=== PATIENT | female | born 1960 | race Caucasian/White ===

== ENCOUNTER 2019-07-25 15:14 | Outpatient (CLI) | payer BC, SELFPAY ==
--- NOTE | 2019-07-25 15:22 | XR_ITS ---
WS: [id number] LEFT CLAVICLE 2 VIEWS HISTORY: SHOULDER PAIN, LEFT, CHRONIC ROTATOR CUFF SYNDROME. COMPARISON: None available. Clavicle is intact. No widening of the AC joint or elevation. Visualized upper lung field and adjacent soft tissues are normal. Focal calcification in the aortic arch. XR/[place] [id number] IMPRESSION: Normal LEFT clavicle.
--- NOTE | 2019-07-25 15:22 | XR_ITS ---
WS: [id number] LEFT SHOULDER: 3 VIEW(S) TECHNIQUE: Internal and external rotation with Y view. HISTORY: SHOULDER PAIN, LEFT, CHRONIC ROTATOR CUFF SYNDROME, LEFT COMPARISON: None available. No fracture or dislocation or soft tissue abnormality. Glenohumeral and AC joints are unremarkable. Atherosclerosis aorta. XR/XR shoulder LT min 2V* [id number] IMPRESSION: Normal LEFT shoulder.
== END 2019-07-25 15:15 | disposition home or self-care (01) ==
LOC: RADWPI 15:20
PROVIDERS: Family Provider Electrodiagnostic Medicine; PCP Electrodiagnostic Medicine; Referring Provider Electrodiagnostic Medicine; Visit Provider Electrodiagnostic Medicine
DX: M75.102 Unspecified rotator cuff tear or rupture of left shoulder, not specified as traumatic (principal); M25.512 Pain in left shoulder; G89.29 Other chronic pain
CPT/HCPCS: 73000; 73030

== ENCOUNTER 2019-12-14 08:24 | Outpatient (CLI) | payer BC, SELFPAY ==
[2019-12-14 09:13] LABS: Alanine Aminotransferase 7 U/L (0-33); Albumin Level 4.4 g/dL (3.5-5.2); Alkaline Phosphatase 99 IU/L (35-105); Anion Gap 14.5 (5-19); Aspartate Amino Transferase 25 U/L (0-32); Blood Urea Nitrogen 10 mg/dL (6-20); Calcium 9.8 mg/dL (8.5-10.5); Carbon Dioxide 28 mmol/L (22-29); Chloride 101 mmol/L (98-107); Globulin 2.6 g/dL (1.3-4.6); Glomerular Filtration Rate 86.2 mL/min (90-130); Glucose 108 mg/dL (65-115); Osmolality Calculated 285 mOsm/kg (285-295); Potassium 4.5 mmol/L (3.5-5.1); Sodium 139 mmol/L (136-145); Total Bilirubin 0.2 mg/dL (0.15-1.2)
== END 2019-12-14 08:25 | disposition home or self-care (01) ==
LOC: ONCMED 08:26
PROVIDERS: PCP Electrodiagnostic Medicine; Visit Provider Internal Medicine Hematology & Oncology
DX: C50.411 Malignant neoplasm of upper-outer quadrant of right female breast (principal); Z17.0 Estrogen receptor positive status [ER+]
CPT/HCPCS: 80053

== ENCOUNTER 2019-12-15 05:56 | Outpatient (CLI) | payer BC, SELFPAY ==
--- NOTE | 2019-12-15 09:34 | ONC FU_ITS ---
Dr. Lynne follow up note Patient: Kellie Cruz Unit #: [id number]: 1960 Dicatated By: Kyung Lynne M.D.Date of Visit:Dec 15, 2019 Onc Med Follow-up/Prog Note History of Present Illness: Mrs. Kellie Cruz, is a 58-year-old female with newly diagnosed right breast cancer, as per patient she noticed a mass in her right breast for which she underwent mammogram and right breast ultrasound which confirmed 2 cm mass at 11:00 position which was biopsied and showed invasive ductal carcinoma ER/CO positive HER-2/idalmis negative, underwent right lumpectomy with sentinel lymph node sampling on 01/05/2019, final pathology report showed invasive ductal carcinoma tumor size 1.5 cm, perineural invasion identified, no lymphovascular invasion, clear surgical margins T1c and 5 sentinel lymph nodes were removed showed no evidence of metastatic disease. N0 Stage IA, ER 93% positive, CO 57 positive HER-2/idalmis negative, Ki-67 10% Oncotype DX score checked on 02/02/2019 showed recurrence score 13 e.g. low, distant recurrence risk at 9 years with aromatase inhibitor is 4% and absolute chemotherapy benefit is less than 1%. Started on Arimidex 1 mg by mouth daily for 5 years on 02/09/2019 Patient also underwent [employer] cancer next panel and she was negative for any known pathogenic mutation Evaluated via telephone, patient denies any special complaints except persistent but improving generalized musculoskeletal discomfort/pain. Earlier she was advised to take Arimidex in the evening to see it is better tolerated, patient continued to take in the morning and thought she can tough it out. No fever or chills, no nausea or vomiting, no diarrhea or constipation, no skin rash or jaundice, no new bony pains otherwise, occasional hot flashes. Medications: busPIRone HCl 1 (5 mg) Tablet Oral daily, Citalopram Hydrobromide 1 (20 mg) Tablet Oral daily, Cyanocobalamin (2500 mcg) Tablet Oral daily, Loratadine 1 (10 mg) Tablet Oral daily PRN, Omeprazole 1 (40 mg) Capsule Delayed Release Oral daily Allergies: No Known Allergies. Review of Systems: Review of Systems is not available for this patient. Vital Signs: Vitals are not available for this patient. Performance Status: 0 - Fully active, able to carry on all predisease activities without restrictions. (ECOG) Physical Examination: Respiratory - denies shortness of breath, Cardiovascular - denies palpitations, Breasts - denies breast mass or tenderness, Gastrointestinal - denies abd pain or fullness, Extremities - denies edema or rash. Lab/Imaging: Test performed on Dec 14, 2019 08:45 Sodium 139 mmol/L Potassium 4.5 mmol/L Chloride 101 mmol/L CO2 28 mmol/L Anion Gap 14.5 BUN 10 mg/dL Creatinine 0.7 mg/dL Cr Clearance (Est) 91.6900 mL/min eGFR 86.2 mL/min Glucose 108 mg/dL Calcium 9.8 mg/dL Protein, Total 7.0 g/dL Albumin 4.4 g/dL Globulin 2.6 g/dL Bilirubin, Total 0.2 mg/dL ALT (SGPT) 7 U/L AST (SGOT) 25 U/L Alkaline Phosphatase 99 IU/L Impression: Invasive ductal carcinoma of right breast status post right lumpectomy with right sentinel axillary lymph node sampling done on 01/05/2019 Final pathology report showed 1.5 cm invasive tumor with perineural invasion identified but no lymphovascular invasion seen with clear surgical margins pT1c, 5 right sentinel axillary lymph nodes were sampled, showed no evidence of metastatic disease ,pN0 Stage IA , ER 93%, CO 57% Ki-67 10% HER-2/idalmis negative Oncotype DX score is 13, which is low and distant recurrence risk at 9 years with aromatase inhibitor is 4% and absolute chemotherapy benefit is less than 1% so started on Arimidex 1 mg by mouth daily for 5 years on 02/09/2019 Plan: Discussed with patient on the telephone regarding her labs comprehensive metabolic panel which is within normal range including alkaline phosphatase Clinically, patient is doing well, tolerating adjuvant hormonal therapy with Arimidex/vitamin D/calcium well but with expected side effects e.g. occasional hot flashes, musculoskeletal pain/discomfort. Patient said her musculoskeletal symptoms now improving but still there. She was advised to try Arimidex in the evening, it may improve her symptoms, if not other agents like Femara or Aromasin can be considered. Patient says she will try it in the evening and if there is no improvement or worsening of her musculoskeletal symptoms then she will call us to make her appointment otherwise we will see her back in 6 months with CBC CMP. Patient has seen her surgical oncologist at [facility] on November 15, 2019, as per surgical note, patient has small cyst in her left breast, appears benign but follow-up studies in 6 months planned. Patient will continue to follow with her surgical oncology. Signed By: Kyung Lynne M.D. <<Signature on File>>
== END 2019-12-15 05:57 | disposition home or self-care (01) ==
LOC: ONCMED 05:58
PROVIDERS: PCP Electrodiagnostic Medicine; Visit Provider Internal Medicine Hematology & Oncology
DX: C50.411 Malignant neoplasm of upper-outer quadrant of right female breast (principal); Z17.0 Estrogen receptor positive status [ER+]; N60.02 Solitary cyst of left breast; Z79.811 Long term (current) use of aromatase inhibitors

== ENCOUNTER 2020-06-26 07:58 | Outpatient (CLI) | payer BC, SELFPAY ==
[2020-06-26 08:42] LABS: Basophils % 0.6 %; Eosinophils # 0.1 10^3/uL (0.0-0.8); Hematocrit 42.8 % (37.0-47.0); Lymphocytes # 1.5 10^3/uL (0.8-4.8); Lymphocytes % 20.8 %; Mean Corpuscular HGB Conc 32.7 g/dL (30.0-36.0); Mean Corpuscular Hemoglobin 33.3 pg (28.0-34.0); Mean Corpuscular Volume 101.7 fL (81-99); Mean Platelet Volume 9.4 fL (7.4-10.4); Monocytes # 0.3 10^3/uL (0.2-0.9); Monocytes % 4.5 %; Neutrophils # 5.22 10^3/uL (1.8-7.7); Neutrophils % 72.8 %; Nucleated Red Blood Cells % 0 %; Platelet Count 304 10^3/cmm (130-400); Red Blood Count 4.21 10^6/uL (4.1-5.3); Red Cell Distribution Width 13.4 % (12.1-15.1); White Blood Count 7.2 10^3/uL (4.0-10.0)
[2020-06-26 09:25] LABS: Alanine Aminotransferase 11 U/L (0-33); Albumin Level 4.5 g/dL (3.5-5.2); Alkaline Phosphatase 117 IU/L (35-105); Anion Gap 15.4 (5-19); Aspartate Amino Transferase 16 U/L (0-32); Blood Urea Nitrogen 11 mg/dL (6-20); Calcium 9.9 mg/dL (8.5-10.5); Carbon Dioxide 28 mmol/L (22-29); Chloride 100 mmol/L (98-107); Globulin 2.8 g/dL (1.3-4.6); Glomerular Filtration Rate 86.2 mL/min (90-130); Glucose 81 mg/dL (65-115); Osmolality Calculated 286 mOsm/kg (285-295); Potassium 4.4 mmol/L (3.5-5.1); Sodium 139 mmol/L (136-145); Total Bilirubin 0.2 mg/dL (0.15-1.2); Total Protein 7.3 g/dL (6.6-8.7)
--- NOTE | 2020-06-26 16:58 | ONC FU_ITS ---
Dr. Lynne follow up note Patient: Kellie Cruz Unit #: [id number]: 1960 Dicatated By: Kyung Lynne M.D.Date of Visit:Jun 26, 2020 Onc Med Follow-up/Prog Note History of Present Illness: Mrs. Kellie Cruz, is a 59-year-old female with newly diagnosed right breast cancer, as per patient she noticed a mass in her right breast for which she underwent mammogram and right breast ultrasound which confirmed 2 cm mass at 11:00 position which was biopsied and showed invasive ductal carcinoma ER/MA positive HER-2/idalmis negative, underwent right Partial mastectomy/sentinel lymph node biopsy on 01/05/2019, final pathology report showed invasive ductal carcinoma tumor size 1.5 cm, perineural invasion identified, no lymphovascular invasion, clear surgical margins T1c and 5 sentinel lymph nodes were removed showed no evidence of metastatic disease. N0 Stage IA, ER 93% positive, MA 57 positive HER-2/idalmis negative, Ki-67 10% Oncotype DX score checked on 02/02/2019 showed recurrence score 13 e.g. low, distant recurrence risk at 9 years with aromatase inhibitor is 4% and absolute chemotherapy benefit is less than 1%. Started on Arimidex 1 mg by mouth daily for 5 years on 02/09/2019 She was given postlumpectomy radiation therapy which she completed On April 05, 2019 Patient also underwent [employer]'s cancer next panel and she was negative for any known pathogenic mutation Came for follow-up, denies any specific complaints, no fever chills, no nausea or vomiting, no diarrhea constipation off and on right hip pain but under control. Patient states she has seen her surgeon on June 01, 2020 and was told there is no evidence of recurrence of disease and follow-up mammogram was scheduled in 6 months., Occasionally hot flashes otherwise tolerating Arimidex well, denies any worsening of musculoskeletal pain/discomfort. As per patient in the last week of April she started feeling weak and tired and headaches and was diagnosed with COVID-19, with supportive care, her symptoms resolved over the period of 2 weeks and now denies any symptoms her sense of smell or taste is intact, no more generalized weakness or fatigue no shortness of breath. Medications: busPIRone HCl 1 (5 mg) Tablet Oral daily, Citalopram Hydrobromide 1 (20 mg) Tablet Oral daily, Loratadine 1 (10 mg) Tablet Oral daily PRN, Omeprazole 1 (40 mg) Capsule Delayed Release Oral daily Allergies: No Known Allergies. Review of Systems: Constitutional - Appetite is good and weight is stable. No fever. Positive for chills, hot flashes, and night sweats. Energy level is good, ENMT - No for sinus congestion/drainage. No mouth sores. No sore throat or difficulty swallowing, Hematologic/Lymphatic - No abnormal bruising or bleeding, Respiratory - Occ shortness of breath. No cough. No pleuritic pain or hemoptysis, Cardiovascular - No angina pain. No palpitations, Gastrointestinal - No nausea or vomiting. Positive for heartburn and acid reflux, but takes medication for this. No diarrhea. No constipation. No blood in the stool or black stools, Genitourinary (F) - No dysuria or hematuria. No urinary frequency. No urgency. No incontinence, Musculoskeletal - No joint or bone pain, Neurologic - No headache or dizziness. No numbness/paresthesias or other focal neurologic symptoms, Psychiatric - Positive for anxiety and depression, but is taking medication for this. No reports of recent insomnia. Vital Signs: Performed on Jun 26, 2020 10:44 Height - 62.00 in Weight - 138.0 lbs (LOW) BSA - 1.63 sq.m BMI - 25.24 Temperature - 97.3 F (LOW) Pulse - 63 /min Respiration - 18 /min BP - 139/84 mm(hg) O2 Sat - 100 % Pain - 0 Performance Status: 0 - Fully active, able to carry on all predisease activities without restrictions. (ECOG) Physical Examination: Respiratory - Lungs are clear to auscultation, Cardiovascular - Regular rate and rhythm of heart , Gastrointestinal - Soft, bowel sounds present, Extremities - No visible edema or rash or cyanosis. Lab/Imaging: Most recent lab results are not available for this patient. Impression: Invasive ductal carcinoma of right breast status post right lumpectomy with right sentinel axillary lymph node sampling done on 01/05/2019 Final pathology report showed 1.5 cm invasive tumor with perineural invasion identified but no lymphovascular invasion seen with clear surgical margins pT1c, 5 right sentinel axillary lymph nodes were sampled, showed no evidence of metastatic disease ,pN0 Stage IA , ER 93%, MA 57% Ki-67 10% HER-2/idalmis negative Oncotype DX score is 13, which is low and distant recurrence risk at 9 years with aromatase inhibitor is 4% and absolute chemotherapy benefit is less than 1% so started on Arimidex 1 mg by mouth daily for 5 years on 02/09/2019 Status post post partial mastectomy radiation therapy completed on April 05, 2019 Status post COVID-19 infection diagnosed in late April 2020, resolved with supportive care Plan: Discussed with patient regarding her labs white blood count 7.2 hemoglobin 14 hematocrit 42.8 platelets 304,000 CMP within normal limits Clinically, patient doing well with no new signs suggestive of recurrence of disease, tolerating Arimidex well along with vitamin D and calcium supplement. As per patient she has seen surgical services recently in May 2020 in [facility] and is she was told there is no evidence of recurrence of disease and follow-up mammogram is scheduled in 6 months. She return to clinic in 6 months with CMP Signed By: Kyung Lynne M.D. <<Signature on File>>
== END 2020-06-26 07:59 | disposition home or self-care (01) ==
LOC: ONCMED 07:59
PROVIDERS: PCP Electrodiagnostic Medicine; Visit Provider Internal Medicine Hematology & Oncology
DX: C50.411 Malignant neoplasm of upper-outer quadrant of right female breast (principal); Z17.0 Estrogen receptor positive status [ER+]; E55.9 Vitamin D deficiency, unspecified; E83.51 Hypocalcemia; Z79.818 Long term (current) use of other agents affecting estrogen receptors and estrogen levels; Z86.19 Personal history of other infectious and parasitic diseases
CPT/HCPCS: 36415; 80053; 85025; G0463

== ENCOUNTER 2020-12-14 08:48 | Outpatient (CLI) | payer BC, SELFPAY ==
[2020-12-14 09:54] LABS: Alanine Aminotransferase 12 U/L (0-33); Albumin Level 4.3 g/dL (3.5-5.2); Alkaline Phosphatase 99 IU/L (35-105); Anion Gap 11.6 (5-19); Aspartate Amino Transferase 19 U/L (0-32); Blood Urea Nitrogen 12 mg/dL (6-20); Calcium 8.9 mg/dL (8.5-10.5); Carbon Dioxide 30 mmol/L (22-29); Chloride 101 mmol/L (98-107); Globulin 2.8 g/dL (1.3-4.6); Glomerular Filtration Rate 102.7 mL/min (90-130); Glucose 95 mg/dL (65-115); Osmolality Calculated 286 mOsm/kg (285-295); Potassium 4.6 mmol/L (3.5-5.1); Sodium 138 mmol/L (136-145); Total Bilirubin 0.2 mg/dL (0.15-1.2); Total Protein 7.1 g/dL (6.6-8.7)
--- NOTE | 2020-12-14 11:18 | ONC FU_ITS ---
Dr. Lynne follow up note Patient: Kellie Cruz Unit #: [id number]: 1960 Dicatated By: Kyung Lynne M.D.Date of Visit:Dec 14, 2020 Onc Med Follow-up/Prog Note History of Present Illness: Mrs. Kellie Cruz, is a 59-year-old female with newly diagnosed right breast cancer, as per patient she noticed a mass in her right breast for which she underwent mammogram and right breast ultrasound which confirmed 2 cm mass at 11:00 position which was biopsied and showed invasive ductal carcinoma ER/NE positive HER-2/idalmis negative, underwent right Partial mastectomy/sentinel lymph node biopsy on 01/05/2019, final pathology report showed invasive ductal carcinoma tumor size 1.5 cm, perineural invasion identified, no lymphovascular invasion, clear surgical margins T1c and 5 sentinel lymph nodes were removed showed no evidence of metastatic disease. N0 Stage IA, ER 93% positive, NE 57 positive HER-2/idalmis negative, Ki-67 10% Oncotype DX score checked on 02/02/2019 showed recurrence score 13 e.g. low, distant recurrence risk at 9 years with aromatase inhibitor is 4% and absolute chemotherapy benefit is less than 1%. Started on Arimidex 1 mg by mouth daily for 5 years on 02/09/2019 She was given postlumpectomy radiation therapy which she completed On April 05, 2019 Patient also underwent [employer]'s cancer next panel and she was negative for any known pathogenic mutation Patient states she has seen her surgeon on June 01, 2020 and was told there is no evidence of recurrence of disease and follow-up mammogram was scheduled in 6 months., Occasionally hot flashes otherwise tolerating Arimidex well, As per patient in the last week of April she started feeling weak and tired and headaches and was diagnosed with COVID-19, with supportive care, her symptoms resolved over the period of 2 weeks Bilateral mammogram and right diagnostic mammogram/ultrasound done on November 30, 2020 at [facility], shows BI-RADS 2, benign finding I recommended continue yearly mammogram. Came for follow-up, denies any specific complaints, no fever chills, no nausea or vomiting, no diarrhea or constipation, no new bony pains, no weight loss, appetite is good, patient has seen her surgeon in [facility] recently and underwent mammogram and she was told it was unremarkable and advised to continue with Arimidex for total 5 years and continue with follow-up mammogram every year Medications: busPIRone HCl 1 (5 mg) Tablet Oral daily, Citalopram Hydrobromide 1 (20 mg) Tablet Oral daily, Loratadine 1 (10 mg) Tablet Oral daily PRN, Omeprazole 1 (40 mg) Capsule Delayed Release Oral daily Allergies: No Known Allergies. Review of Systems: Review of Systems is not available for this patient. Vital Signs: Performed on Dec 14, 2020 10:37 Height - 62.00 in Weight - 143.6 lbs (HIGH) BSA - 1.66 sq.m BMI - 26.26 Temperature - 97.1 F (LOW) Pulse - 72 /min Respiration - 18 /min BP - 156/89 mm(hg) (HIGH) O2 Sat - 97 % Pain - 0 Performance Status: 0 - Fully active, able to carry on all predisease activities without restrictions. (ECOG) Physical Examination: Respiratory - Lungs are clear to auscultation, Cardiovascular - Regular rate and rhythm of heart, Gastrointestinal - Soft, bowel sounds present, Extremities - No visible edema or rash. Lab/Imaging: Test performed on Jun 26, 2020 08:20 Sodium 139 mmol/L Potassium 4.4 mmol/L Chloride 100 mmol/L CO2 28 mmol/L Anion Gap 15.4 BUN 11 mg/dL Creatinine 0.7 mg/dL Cr Clearance (Est) 87.62 mL/min eGFR 86.2 mL/min Glucose 81 mg/dL Osmolality - Calculated 286 mOsm/kg Calcium 9.9 mg/dL Protein, Total 7.3 g/dL Albumin 4.5 g/dL Globulin 2.8 g/dL Bilirubin, Total 0.2 mg/dL ALT (SGPT) 11 U/L AST (SGOT) 16 U/L Alkaline Phosphatase 117 IU/L WBC 7.2 10 3/uL RBC 4.21 10 6/uL HGB 14.0 g/dL HCT 42.8 % MCV 101.7 fL MCH 33.3 pg MCHC 32.7 g/dL RDW 13.4 % Platelet Count 304 10 3/cmm MPV 9.4 fL Neutrophils 5.22 10 3/uL Lymphocytes 1.5 10 3/uL Monocytes 0.3 10 3/uL Eosinophils 0.1 10 3/uL Basophils 0.0 10 3/uL Neutrophil % 72.8 % Lymphocyte % 20.8 % Monocyte % 4.5 % Eosinophil % 1.0 % Basophils % 0.6 % NRBC % 0 % Impression: Invasive ductal carcinoma of right breast status post right lumpectomy with right sentinel axillary lymph node sampling done on 01/05/2019 Final pathology report showed 1.5 cm invasive tumor with perineural invasion identified but no lymphovascular invasion seen with clear surgical margins pT1c, 5 right sentinel axillary lymph nodes were sampled, showed no evidence of metastatic disease ,pN0 Stage IA , ER 93%, NE 57% Ki-67 10% HER-2/idalmis negative Oncotype DX score is 13, which is low and distant recurrence risk at 9 years with aromatase inhibitor is 4% and absolute chemotherapy benefit is less than 1% so started on Arimidex 1 mg by mouth daily for 5 years on 02/09/2019 Status post post partial mastectomy radiation therapy completed on April 05, 2019 Status post COVID-19 infection diagnosed in late April 2020, resolved with supportive care Plan: Discussed with patient regarding her labs CMP within normal range, clinically, there is no signs symptom suggestive of recurrence of disease, recently evaluated by surgery at [facility] and her follow-up mammogram showed no abnormality. Patient is tolerating Arimidex well along with vitamin D and calcium, will continue with same., As mentioned in surgery note dated November 30, 2020, that she has not gotten the Covid vaccine as it was not recommended by her medical oncologist which is not true and in fact, patient was encouraged to consider Covid vaccination but patient was reluctant due to her own belief system and moreover patient said she did not make such statement. But regardless, patient was again advised to consider Covid vaccination, patient states she will discuss with her PMD and then decide In the meantime continue with Arimidex 1 mg daily along with vitamin D and calcium supplements and return to clinic in 6 months with CBC CMP Signed By: Kyung Lynne M.D. <<Signature on File>>
== END 2020-12-14 08:49 | disposition home or self-care (01) ==
LOC: ONCMED 08:51
PROVIDERS: PCP Electrodiagnostic Medicine; Visit Provider Internal Medicine Hematology & Oncology
DX: C50.811 Malignant neoplasm of overlapping sites of right female breast (principal); C77.3 Secondary and unspecified malignant neoplasm of axilla and upper limb lymph nodes; Z79.811 Long term (current) use of aromatase inhibitors; Z90.11 Acquired absence of right breast and nipple; Z92.3 Personal history of irradiation; Z17.0 Estrogen receptor positive status [ER+]
CPT/HCPCS: 36415; 80053; 99214

== ENCOUNTER 2021-06-17 10:56 | Outpatient (CLI) | payer BC, SELFPAY ==
[2021-06-17 11:55] LABS: Alanine Aminotransferase 19 U/L (0-33); Albumin Level 4.3 g/dL (3.5-5.2); Alkaline Phosphatase 111 IU/L (35-105); Anion Gap 17.5 (5-19); Aspartate Amino Transferase 20 U/L (0-32); Blood Urea Nitrogen 5 mg/dL (6-20); Carbon Dioxide 24 mmol/L (22-29); Chloride 102 mmol/L (98-107); Globulin 2.4 g/dL (1.3-4.6); Glomerular Filtration Rate 102.7 mL/min (90-130); Glucose 83 mg/dL (65-115); Osmolality Calculated 284 mOsm/kg (285-295); Potassium 4.5 mmol/L (3.5-5.1); Sodium 139 mmol/L (136-145); Total Bilirubin 0.2 mg/dL (0.15-1.2); Total Protein 6.7 g/dL (6.6-8.7)
[2021-06-17 12:33] LABS: Basophils % 0.6 %; Eosinophils # 0.1 10^3/uL (0.0-0.8); Hematocrit 39.5 % (37.0-47.0); Hemoglobin 13.4 g/dL (11.5-15.3); Lymphocytes % 32.3 %; Mean Corpuscular HGB Conc 33.9 g/dL (30.0-36.0); Mean Corpuscular Hemoglobin 33.5 pg (28.0-34.0); Mean Corpuscular Volume 98.8 fl (81-99); Mean Platelet Volume 9.6 fL (7.4-10.4); Monocytes # 0.3 10^3/uL (0.2-0.9); Monocytes % 4.8 %; Neutrophils # 3.85 10^3/uL (1.8-7.7); Nucleated Red Blood Cells % 0 %; Platelet Count 295 10^3/cmm (130-400); Red Cell Distribution Width 13.2 % (12.1-15.1); White Blood Count 6.3 10^3/uL (4.0-10.0)
--- NOTE | 2021-06-17 17:04 | ONC FU_ITS ---
Dr. Lynne follow up note Patient: Kellie Cruz Unit #: [id number]: 1960 Dicatated By: Kyung Lynne M.D.Date of Visit:Jun 17, 2021 Onc Med Follow-up/Prog Note History of Present Illness: Mrs. Kellie Cruz, is a 60-year-old female with newly diagnosed right breast cancer, as per patient she noticed a mass in her right breast for which she underwent mammogram and right breast ultrasound which confirmed 2 cm mass at 11:00 position which was biopsied and showed invasive ductal carcinoma ER/VA positive HER-2/idalmis negative, underwent right Partial mastectomy/sentinel lymph node biopsy on 01/05/2019, final pathology report showed invasive ductal carcinoma tumor size 1.5 cm, perineural invasion identified, no lymphovascular invasion, clear surgical margins T1c and 5 sentinel lymph nodes were removed showed no evidence of metastatic disease. N0 Stage IA, ER 93% positive, VA 57 positive HER-2/idalmis negative, Ki-67 10% Oncotype DX score checked on 02/02/2019 showed recurrence score 13 e.g. low, distant recurrence risk at 9 years with aromatase inhibitor is 4% and absolute chemotherapy benefit is less than 1%. Started on Arimidex 1 mg by mouth daily for 5 years on 02/09/2019 She was given postlumpectomy radiation therapy which she completed On April 05, 2019 Patient also underwent [employer]'s cancer next panel and she was negative for any known pathogenic mutation Patient states she has seen her surgeon on June 01, 2020 and was told there is no evidence of recurrence of disease and follow-up mammogram was scheduled in 6 months., Occasionally hot flashes otherwise tolerating Arimidex well, As per patient in the last week of April she started feeling weak and tired and headaches and was diagnosed with COVID-19, with supportive care, her symptoms resolved over the period of 2 weeks Bilateral mammogram and right diagnostic mammogram/ultrasound done on November 30, 2020 at [facility], shows BI-RADS 2, benign finding I recommended continue yearly mammogram. Came for follow-up, denies any specific complaints, no fever chills, no nausea or vomiting, no diarrhea constipation, no new bony pains, occasionally hot flashes otherwise tolerating Arimidex well Medications: busPIRone HCl 1 (5 mg) Tablet Oral daily, Citalopram Hydrobromide 1 (20 mg) Tablet Oral daily, Loratadine 1 (10 mg) Tablet Oral daily PRN, Omeprazole 1 (40 mg) Capsule Delayed Release Oral daily Allergies: No Known Allergies. Review of Systems: Review of Systems is not available for this patient. Vital Signs: Performed on Jun 17, 2021 13:34 Height - 62.00 in Weight - 150.2 lbs (HIGH) BSA - 1.69 sq.m BMI - 27.47 Temperature - 97.9 F (LOW) Pulse - 86 /min Respiration - 16 /min BP - 147/84 mm(hg) (HIGH) O2 Sat - 98 % Pain - 0 Fatigue - 8 Performance Status: 0 - Fully active, able to carry on all predisease activities without restrictions. (ECOG) Physical Examination: Respiratory - Lungs are clear to auscultation, Cardiovascular - Regular rate and rhythm of heart, Gastrointestinal - Soft, bowel sounds present, Extremities - No visible edema. Lab/Imaging: Most recent lab results are not available for this patient. Impression: Invasive ductal carcinoma of right breast status post right lumpectomy with right sentinel axillary lymph node sampling done on 01/05/2019 Final pathology report showed 1.5 cm invasive tumor with perineural invasion identified but no lymphovascular invasion seen with clear surgical margins pT1c, 5 right sentinel axillary lymph nodes were sampled, showed no evidence of metastatic disease ,pN0 Stage IA , ER 93%, VA 57% Ki-67 10% HER-2/idalmis negative Oncotype DX score is 13, which is low and distant recurrence risk at 9 years with aromatase inhibitor is 4% and absolute chemotherapy benefit is less than 1% so started on Arimidex 1 mg by mouth daily for 5 years on 02/09/2019 Status post post partial mastectomy radiation therapy completed on April 05, 2019 Status post COVID-19 infection diagnosed in late April 2020, resolved with supportive care Plan: Discussed with patient regarding her labs white blood count 6.3 hemoglobin 13.4 hematocrit 39.5 platelets 295,000 CMP within normal limits Clinically, patient doing well with no new signs symptoms history of recurrence of disease, tolerating daily Arimidex well, will continue same we will also add vitamin D and calcium supplements.. And then she will return to clinic 6 months with CBC CMP and follow-up mammogram which will be scheduled at initial [facility] Signed By: Kyung Lynne M.D. <<Signature on File>>
== END 2021-06-17 10:57 | disposition home or self-care (01) ==
LOC: ONCMED 10:58
PROVIDERS: PCP Electrodiagnostic Medicine; Visit Provider Internal Medicine Hematology & Oncology
DX: C50.811 Malignant neoplasm of overlapping sites of right female breast (principal); Z17.0 Estrogen receptor positive status [ER+]; Z90.11 Acquired absence of right breast and nipple; Z79.818 Long term (current) use of other agents affecting estrogen receptors and estrogen levels; E55.9 Vitamin D deficiency, unspecified; Z79.899 Other long term (current) drug therapy
CPT/HCPCS: 36415; 80053; 85025; 99214

== ENCOUNTER 2021-09-06 11:34 | Outpatient (CLI) | payer OTHER, SELFPAY ==
--- NOTE | 2021-09-06 11:38 | XR_ITS ---
WS: [id number] Exam: XR tibia fibula RT 2V [id number] Date/Time of Exam: 09/06/2021 11:41 AM Reason For Exam: RIGHT LEG PAIN In multiple views, no fractures, soft tissue swelling, or unusual calcifications are noted in or arou nd the tibia and fibula. There is normal bony alignment. No irregularity to the bony architecture i s noted. XR/XR tibia fibula RT 2V [id number] IMPRESSION: Negative right tibia and fibula.
--- NOTE | 2021-09-06 11:38 | XR_ITS ---
WS: [id number] Exam: XR ankle RT 2V [id number] Date/Time of Exam: 09/06/2021 11:41 AM Reason For Exam: RIGHT LEG PAIN No fracture or dislocation. The ankle mortise is well-maintained. Normal soft tissues. Osteopenia. XR/XR ankle RT 2V [id number] IMPRESSION: 1. No fracture noted. 2. Osteopenia
== END 2021-09-06 11:35 | disposition home or self-care (01) ==
PROVIDERS: PCP Electrodiagnostic Medicine; Visit Provider Electrodiagnostic Medicine
DX: M79.604 Pain in right leg (principal); M85.871 Other specified disorders of bone density and structure, right ankle and foot
CPT/HCPCS: 73590; 73600

== ENCOUNTER 2022-01-16 13:46 | Oncology outpatient (recurring) (ONCR) | payer OTHER, SELFPAY ==
[2022-01-16 14:09] LABS: Basophils % 0.6 %; Eosinophils # 0.1 10^3/uL (0.0-0.8); Eosinophils % 1.9 %; Hematocrit 38.8 % (37.0-47.0); Lymphocytes # 2.7 10^3/uL (0.8-4.8); Lymphocytes % 44.2 %; Mean Corpuscular HGB Conc 33.5 g/dL (30.0-36.0); Mean Corpuscular Hemoglobin 32.1 pg (28.0-34.0); Mean Corpuscular Volume 95.8 fl (81-99); Mean Platelet Volume 9.3 fL (7.4-10.4); Monocytes # 0.3 10^3/uL (0.2-0.9); Neutrophils # 2.97 10^3/uL (1.8-7.7); Neutrophils % 48.1 %; Nucleated Red Blood Cells % 0 %; Platelet Count 283 10^3/cmm (130-400); Red Blood Count 4.05 10^6/uL (4.1-5.3); Red Cell Distribution Width 13.9 % (12.1-15.1); White Blood Count 6.2 10^3/uL (4.0-10.0)
[2022-01-16 14:24] LABS: Alanine Aminotransferase 21 U/L (0-33); Albumin Level 4.5 g/dL (3.5-5.2); Alkaline Phosphatase 116 IU/L (35-105); Aspartate Amino Transferase 27 U/L (0-32); Blood Urea Nitrogen 11 mg/dL (6-20); Calcium 9.2 mg/dL (8.5-10.5); Carbon Dioxide 25 mmol/L (22-29); Chloride 101 mmol/L (98-107); Globulin 2.4 g/dL (1.3-4.6); Glomerular Filtration Rate 64.1 mL/min (90-130); Glucose 107 mg/dL (65-115); Osmolality Calculated 286 mOsm/kg (285-295); Sodium 138 mmol/L (136-145); Total Bilirubin 0.2 mg/dL (0.15-1.2); Total Protein 6.9 g/dL (6.6-8.7)
== END 2022-02-09 23:59 | disposition home or self-care (01) ==
PROVIDERS: PCP Electrodiagnostic Medicine; Visit Provider Internal Medicine Hematology & Oncology
DX: C50.411 Malignant neoplasm of upper-outer quadrant of right female breast (principal)
CPT/HCPCS: 36415; 80053; 85025

== ENCOUNTER 2023-02-10 12:37 | Emergency (ER) | payer OTHER, SELFPAY ==
[2023-02-10] VITALS (30 sets, daily range): BP systolic 158–193; BP diastolic 91–122; PULSE 65–76; RESP 12–22; TEMP 36.3–37.1; O2SAT 95–100; BMI 26.5
[2023-02-10 13:07] LABS: Glucose Point of Care 101 mg/dL (70-110)
--- NOTE | 2023-02-10 13:07 | XRR_ITS ---
PROCEDURE INFORMATION: Exam: XR Chest Exam date and time: 02/10/2023 1:13 PM Age: 62 years old Clinical indication: Other: Mental status change TECHNIQUE: Imaging protocol: Radiologic exam of the chest. Views: 1 view. COMPARISON: 1[place] [id number] 07/25/2019 3:31 PM 2. CR XR shoulder LT min 2V* [id number] 07/25/2019 3:31 PM FINDINGS: Lungs: Unremarkable. No consolidation. Pleural spaces: Unremarkable. No pleural effusion. No pneumothorax. Heart/Mediastinum: Unremarkable. No cardiomegaly. Vasculature: Aortic arch atherosclerotic calcification. Bones/joints: Unremarkable. Soft tissues: Right outer breast/axillary surgical clips. XR/XR chest 1V portable [id number] IMPRESSION: No acute findings.
--- NOTE | 2023-02-10 13:08 | CT_ITS ---
WS: [id number] CT HEAD NONCONTRAST HISTORY: Symptoms of acute stroke TECHNIQUE: Contiguous axial imaging performed through the brain in 2.5 mm imaging. Bone and soft tiss ue windows. Sagittal and coronal reformats reviewed. All CT scans at [facility] use at least one of these dose optimization techniques: automated exposure control; mA and/or kV adjustment per pa tient size (includes targeted exams where dose is matched to clinical indication); or iterative recon struction. DLP: 1014.08 mGy-cm. COMPARISON: None available. No acute intracranial hemorrhage, midline shift or mass effect. Mild atrophy and small vessel ischemic disease. Artifact versus small lacunar infarct in the zurdo. Re mote lacunar infarct adjacent to the LEFT thalamus. Ventricles: Normal size with no hydrocephalus. No inferior displacement of cerebellar tonsils. Paranasal sinuses: As visualized are clear. Mastoid air cells: Well pneumatized. Calvarium and scalp: Skull is intact with no soft tissue edema or swelling. CT/CT head thrombolytic 80275 IMPRESSION: 1. No acute intracranial hemorrhage or edema. 2. Prior lacunar infarct adjacent to the LEFT thalamus and artifact versus brian or lacunar infarct in the zurdo.
--- NOTE | 2023-02-10 13:08 | ECG_ITS ---
[facility] Test Date: 2023-02-10 Pat Name: Kellie Cruz Department: Room: Gender: Female Rehabilitation Services Director: : 1960 Requested By: Anoop Chanel Order Number: [id number] León MD: Bret Dela Cruz M.D. Measurements Intervals [place] Rate: 69 P: 59 GA: 159 QRS: 28 QRSD: 85 T: 34 QT: 413 QTc: 443 Interpretive Statements SINUS RHYTHM SEPTAL MYOCARDIAL INFARCTION , OF INDETERMINATE AGE [40+ ms Q WAVE IN V1/V2] No previous ECG available for comparison Electronically Signed On 02-10-2023 20:26:47 CDT by Bret Dela Cruz M.D. [email or web address] [email or web address] regional medical [email or web address] [email or web address]/[id number]
[2023-02-10 13:19] LABS: Basophils % 0.4 %; Eosinophils # 0.1 10^3/uL (0.0-0.8); Eosinophils % 0.7 %; Hematocrit 45.2 % (37.0-47.0); Hemoglobin 15.4 g/dL (11.5-15.3); Lymphocytes # 2.1 10^3/uL (0.8-4.8); Lymphocytes % 28.4 %; Mean Corpuscular HGB Conc 34.1 g/dL (30.0-36.0); Mean Corpuscular Hemoglobin 36.1 pg (28.0-34.0); Mean Corpuscular Volume 105.9 fl (81-99); Mean Platelet Volume 9.1 fL (7.4-10.4); Monocytes # 0.4 10^3/uL (0.2-0.9); Monocytes % 4.8 %; Neutrophils # 4.77 10^3/uL (1.8-7.7); Neutrophils % 65.4 %; Nucleated Red Blood Cells % 0 %; Platelet Count 280 10^3/cmm (130-400); Red Blood Count 4.27 10^6/uL (4.1-5.3); White Blood Count 7.3 10^3/uL (4.0-10.0)
[2023-02-10 13:30] LABS: Alanine Aminotransferase 24 U/L (0-33); Albumin Level 4.7 g/dL (3.5-5.2); Alkaline Phosphatase 124 U/L (35-105); Aspartate Amino Transferase 28 U/L (0-32); Blood Urea Nitrogen 10 mg/dL (8-23); Calcium 9.8 mg/dL (8.5-10.5); Carbon Dioxide 25 mmol/L (22-29); Chloride 101 mmol/L (98-107); Globulin 2.6 g/dL (1.3-4.6); Glomerular Filtration Rate 85.4 mL/min (90-130); Glucose 101 mg/dL (65-115); Osmolality Calculated 283 mOsm/kg (285-295); Sodium 137 mmol/L (136-145); Total Bilirubin 0.3 mg/dL (0.15-1.2); Total Protein 7.3 g/dL (6.6-8.7)
[2023-02-10 13:36] LABS: Anion Gap 15.8 (5-19); Potassium 4.8 mmol/L (3.5-5.1)
[2023-02-10 13:38] LABS: INR 0.93 (0.8-1.2)
[2023-02-10] MEDS: aspirin 325 mg Tablet PO (13:40)
[2023-02-10] MEDS: sodium chloride 0.9% 500 ML 999 ML IV (13:40)
[2023-02-10 13:42] LABS: Partial Thromboplastin Time 27.3 SECONDS (23.9-36.7)
--- NOTE | 2023-02-10 13:45 | ED_ITS ---
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 Patient presents to the ER for further assessment and management. Associated symptoms: Denies chest pain, chills, fever(s), nausea or vomiting Review of Systems General: Reports: 10 or more systems reviewed and unremarkable except in HPI and below Const: Denies: fever(s), chills, fatigue or malaise Eyes: Denies: change in vision or blurry vision Card: Denies: chest pain or palpitations Resp: Denies: dyspnea or productive cough GI: Denies: abdominal pain, nausea or vomiting : Denies: flank pain Musc: Denies: extremity pain or extremity swelling Skin/Breast: Denies: rash or pruritus Neuro: Reports: weakness in extremities and sensory changes Psych: Denies: anxiety or depression Sanjay/Lymph: Denies: easy bleeding All/Imm: Denies: urticaria, throat swelling or facial swelling PFSH ED PFSH: Medical History Breast cancer, right Family History Father Cancer Hypertension Mother Stroke Alzheimer disease Atrial fibrillation Grandmother Stroke Grandfather CAD (coronary artery disease) Social History Smoking and tobacco status: current every day smoker Alcohol intake: current Alcohol intake frequency: few times a week Alcohol type: wine Substance/Drug Use: never Caregiver/support person: Yes Lives independently: No Household members: spouse Housing: Other Details: RV Marital status: Number of children: 0 Physical Exam Const: COMMON NORMALS: no acute distress, patient oriented x3 and healthy appearing HENMT: COMMON NORMALS: normocephalic and atraumatic HEAD & SCALP: normocephalic and atraumatic Eye: COMMON NORMALS: Equal, round and reactive pupils present and EOMs intact bilaterally PUPIL: Yes Equal, round and reactive pupils present OTHER: What appears to be some mild facial weakness on the left side appreciated Neck/C-Spine: COMMON NORMALS: full ROM, supple and no JVD Lymph: LYMPHATIC: no lymphadenopathy noted Chest: COMMONS NORMALS: normal inspection of the chest and normal palpation of entire chest wall Resp: COMMON NORMALS: normal respiratory effort, No retractions and clear to auscultation bilaterally EFFORT & INSPECTION: Yes able to speak in complete sentences and Yes symmetric chest movement AUSCULTATION: clear to auscultation bilaterally Cardio: COMMON NORMALS: no JVD, regular rate and regular rhythm RATE: reg ular rate RHYTHM: regular rhythm GI: COMMON NORMALS: Normal to inspection, nondistended, normoactive bowel sounds present, Soft to palpation and non-tender INSPECTION: Yes normal to inspection PALPATION: Yes Soft to palpation : COMMON NORMALS: Yes no CVA tenderness BLADDER/KIDNEY EXAM: Yes no CVA tenderness Back/Pelvis: COMMON NORMALS: no CVA tenderness Extremity: COMMON NORMALS: normal to inspection; negative for full ROM (Mild droop noted to the left arm with subjective numbness going down to the) Neuro: COMMON NORMALS: patient oriented x3, CN's II-XII intact bilaterally, moves all extremities and no focal motor deficits Psych: COMMON NORMALS: mental status grossly normal, Normal thought process present, cooperative and normal affect THOUGHT PROCESS: Normal thought process present Skin: COMMON NORMALS: no rashes or lesions noted GENERAL SKIN EXAM: no rashes or lesions noted Course ED course: Due to patient's neurological symptoms during the last 24 hours she was a considered a stroke activation did currently waiting on CT without contrast to be obtained will be discussed with Dr. Traore for further eval on exam patient does appear to have a small clinical stroke we will continue to follow with anticipation need for admission. Vital Signs: Vital signs: Vital Signs Temperature 98.8 F 02/10/23 12:51 Pulse Rate 70 02/10/23 14:45 Respiratory Rate 20 H 02/10/23 14:45 Blood Pressure 187/91 02/10/23 15:15 Pulse Oximetry 97 02/10/23 15:15 Oxygen Delivery Me thod Room Air 02/10/23 14:45 MDM - Weakness Medical Decision Making Sin patient's case with Dr. Traore pending CT without contrast patient CT without contrast reveals a small what appears to be a thalamic lacunar infarct in the thalamus of the zurdo on the left on exam patient has symptoms on the left side due to this CT angiogram of the head with contrast was obtained of the head and neck these came back unremarkable discussed patient's case with Dr. Traore patient has a current NIH around 2 with generalized just mild weakness located to left arm and left leg with more so paresthesias involving left arm and slight facial droop per Dr. Traore it was recommended the patient can be subsequently discharged outpatient due to the minimal debility that she has recommending the patient be started on Plavix atorvastatin and aspirin in which she will need to be seen by neurology in the next 2 weeks with her or her partner of the outpatient office in which patient will ultimately be set up for outpatient echocardiogram and MRI. I spoke to the patient at length in regards to this that is agreeable to being discharged home as she was not looking forward to staying in the hospital. Patient has very minimal debility at this time advised to the patient to take medication as prescribed and to return the interim if any of her symptoms persist or worse. Lab Data 02/10/23 13:01 02/10/23 13:01 Radiology Impressions Chest X-Ray 02/10/23 13:07 IMPRESSION: No acute findings. Head CT 02/10/23 13:08 IMPRESSION: 1. No acute intracranial hemorrhage or edema. 2. Prior lacunar infarct adjacent to the LEFT thalamus and artifact versus prior lacunar infarct in the zurdo. Head/Neck CTA 02/10/23 13:49 IMPRESSION: 1. No significant carotid artery stenosis. 2. Mild atherosclerotic plaque in the intracranial carotid arteries. No stenosis. 3. No cerebral aneurysm. 4. Very subtle, subcentimeter pulmonary nodules in the lung apices. Recommend follow-up chest CT with IV contrast. Recommend at least 24 hour interval to clear the IV contrast which has been injected today. Metastatic disease should be excluded. 5. Enlarged, multinodular thyroid gland. Laboratory Results WBC 7.3 10^3/uL (4.0-10.0) 02/10/23 13:01 RBC 4.27 10^6/uL (4.1-5.3) 02/10/23 13:01 Hgb 15.4 g/dL (11.5-15.3) H 02/10/23 13:01 Hct 45.2 % (37.0-47.0) 02/10/23 13:01 MCV 105.9 fl (81-99) H 02/10/23 13:01 MCH 36.1 pg (28.0-34.0) H 02/10/23 13:01 MCHC 34.1 g/dL (30.0-36.0) 02/10/23 13:01 RDW 14.0 % (12.1-15.1) 02/10/23 13:01 Plt Count 280 10^3/cmm (130-400) 02/10/23 13:01 MPV 9.1 fL (7.4-10.4) 02/10/23 13:01 Neut % (Auto) 65.4 % 02/10/23 13:01 Lymph % (Auto) 28.4 % 02/10/23 13:01 Coal % (Auto) 4.8 % 02/10/23 13:01 Eos % (Auto) 0.7 % 02/10/23 13:01 Baso % (Auto) 0.4 % 02/10/23 13:01 Neut # (Auto) 4.77 10^3/uL (1.8-7.7) 02/10/23 13:01 Lymph # (Auto) 2.1 10^3/uL (0.8-4.8) 02/10/23 13:01 Coal # (Auto) 0.4 10^3/uL (0.2-0.9) 02/10/23 13:01 Eos # (Auto) 0.1 10^3/uL (0.0-0.8) 02/10/23 13:01 Baso # (Auto) 0.0 10^3/uL (0.0-0.1) 02/10/23 13:01 Nucleated RBC % (auto) 0 % 02/10/23 13:01 Nucleated RBCs # 0.0 /100WBC 02/10/23 13:01 PT 12.80 SECONDS (12.1-14.9) 02/10/23 13:01 INR 0.93 (0.8-1.2) 02/10/23 13:01 APTT 27.3 SECONDS (23.9-36.7) 02/10/23 13:01 Sodium 137 mmol/L (136-145) 02/10/23 13:01 Potassium 4.8 mmol/L (3.5-5.1) 02/10/23 13:01 Chloride 101 mmol/L (98-107) 02/10/23 13:01 Carbon Dioxide 25 mmol/L (22-29) 02/10/23 13:01 Anion Gap 15.8 (5-19) 02/10/23 13:01 BUN 10 mg/dL (8-23) 02/10/23 13:01 Creatinine 0.7 mg/dL (0.5-0.9) 02/10/23 13:01 GFR Calculation 85.4 mL/min (90-130) L 02/10/23 13:01 Glucose 101 mg/dL (65-115) 02/10/23 13:01 POC Glucose 101 mg/dL (70-110) 02/10/23 13:04 Calculated Osmolality 283 mOsm/kg (285-295) L 02/10/23 13:01 Calcium 9.8 mg/dL (8.5-10.5) 02/10/23 13:01 Total Bilirubin 0.3 mg/dL (0.15-1.2) 02/10/23 13:01 AST 28 U/L (0-32) 02/10/23 13:01 ALT 24 U/L (0-33) 02/10/23 13:01 Alkaline Phosphatase 124 U/L (35-105) H 02/10/23 13:01 Total Protein 7.3 g/dL (6.6-8.7) 02/10/23 13:01 Albumin 4.7 g/dL (3.5-5.2) 02/10/23 13:01 Globulin 2.6 g/dL (1.3-4.6) 02/10/23 13:01 Urine Color Yellow (Yellow) 02/10/23 14:53 Urine Appearance Clear (CLEAR) 02/10/23 14:53 Urine pH 6.5 (5-7) 02/10/23 14:53 Ur Specific Burt 1.005 (1.005-1.030) 02/10/23 14:53 Urine Protein Neg (Negative) 02/10/23 14:53 Urine Glucose (UA) Norm (Normal) 02/10/23 14:53 Urine Ketones Negative (Negative) 02/10/23 14:53 Urine Blood Trace (Negative) H 02/10/23 14:53 Urine Nitrate Negative (Negative) 02/10/23 14:53 Urine Bilirubin Neg (Negative) 02/10/23 14:53 Urine Urobilinogen Norm mg/dL (Negative) 02/10/23 14:53 Ur Leukocyte Esterase Negative (Negative) 02/10/23 14:53 Urine RBC 0-4 /hpf (0-2) H 02/10/23 14:53 Urine WBC 0-4 /hpf (0-5) H 02/10/23 14:53 Ur Squamous Epith Cells 0-4 /hpf (0-5) H 02/10/23 14:53 Amorphous Sediment 2+ /hpf 02/10/23 14:53 Urine Bacteria None /hpf (NONE) 02/10/23 14:53 Urine Opiates Screen Negative ng/mL (Negative) 02/10/23 14:53 Ur Barbiturates Screen Negative ng/mL (Negative) 02/10/23 14:53 Ur Phencyclidine Scrn Negative ng/mL (Negative) 02/10/23 14:53 Ur Amphetamines Screen Negative ng/mL (Negative) 02/10/23 14:53 U Benzodiazepines Scrn Negative ng/mL (Negative) 02/10/23 14:53 Urine Cocaine Screen Negative ng/mL (Negative) 02/10/23 14:53 U Marijuana (THC) Screen Negative ng/mL (Negative) 02/10/23 14:53 Discharge Plan Discharge Patient Disposition: Home Clinical Impression: CVA (cerebral vascular accident) Condition: Stable Prescriptions: New Plavix 75 mg tablet 75 mg PO DAILY Qty: 20 0RF aspirin 81 mg tablet,delayed release (DR/EC) 81 mg PO DAILY Qty: 20 0RF atorvastatin 10 mg tablet 10 mg PO DAILY Qty: 20 0RF No Action omeprazole 20 mg capsule,delayed release(DR/EC) 20 mg PO DAILY citalopram 10 mg tablet 10 mg PO DAILY buspirone 5 mg tablet 5 mg PO DAILY lysine 500 mg Tablet 500 mg PO DAILY loratadine 10 mg Capsule 10 mg PO DAILY anastrozole 1 mg tablet 1 mg PO DAILY Discharge Orders: Discharge ED (Routine); Ordered 02/10/23 Ordered By: Anoop Chanel Referrals: Marjorie Traore MD [Physician] - 7-10 days (Please contact her office tomorrow in which you will need to be seen by her or her partner within the next 10 to 14 days.) Raudel Diallo, [Primary Care Provider] - Discharge Diet: Advance as tolerated Discharge Activity: Increase activity as tolerated Patient Instructions: Stroke (DC) Activity Restrictions/Additional Instructions: Please call Dr. Traore's office tomorrow morning for prompt follow-up outpatient within the next week to 10 days referrals for both a MRI of the brain with and without contrast as well as of the echocardiogram had not made up on your behalf and which will need to be completed over the next 1 week outpatient you will be contacted by social security specialist in regards to scheduling these tests. Please take your medications as prescribed. Please return in the interim if any of your symptoms persist or worse. Coding Level of Care Code ED [employer] for Jenifer Rock
--- NOTE | 2023-02-10 13:49 | CT_ITS ---
WS: [id number] CT ANGIOGRAM CEREBRAL AND CAROTID ARTERIES HISTORY: cva TECHNIQUE: CT angiogram is performed of the carotid and cerebral arteries. During arterial injection imaging is obtained from the skull vertex to the aortic arch in 1.25 mm imaging. Coronal and sagittal reformats are submitted. Additional multi planar reformats of the carotid and cerebral arteries are submitted, MIP imaging also reviewed. NASCET criteria utilized. [facility] at least one of these dose optimization techniques: automated exposure control; mA and/or kV adjust ment per patient size (includes targeted exams where dose is matched to clinical indication); or iter ative reconstruction. CONTRAST: Omnipaque 350; 100 mL IV. DLP: 424.92 mGy.cm COMPARISON: None available. Carotid Angiogram: Right carotid: Common carotid artery: Arises normally from the innominate artery. No significant plaque or stenosis. Internal carotid artery: No plaque or stenosis. External carotid artery: Patent. Left carotid: Common carotid artery: Arises normally from the aorta. No significant plaque or stenosis. Internal carotid artery: No plaque or stenosis. External carotid artery: Patent. Right vertebral artery: Unremarkable. Left vertebral artery: Dominant. No significant stenosis. Subclavian arteries: No stenosis or significant abnormality. Upper thorax: Paraseptal emphysema. There are several very small follicle nodules at the lung apices. These are less than a centimeter but will need to be further evaluated for possible malignancy. Thyroid gland: Enlarged bilateral thyroid nodules. Slightly greater extension inferiorly of the RIGHT thyroid. Osseous structures: Moderate cervical spondylitic disease. CEREBRAL ANGIOGRAM: Intracranial vertebral arteries: Small caliber distal RIGHT vertebral artery. Patent vertebral arteri es bilaterally. Basilar artery: No significant stenosis or occlusion. No aneurysm. Intracranial Internal carotid arteries: Small amount of plaque. No high-grade stenosis. Middle cerebral arteries: Normal. Anterior cerebral arteries and ACOM: Normal. Posterior cerebral arteries and PCOM's: Normal. Dural venous sinuses are normally enhancing. Mastoid air cells: Normal. Paranasal sinuses: Mucous retention cyst RIGHT maxillary sinus. Calvarium: Normal. CT/CT angio headneck* [id number] IMPRESSION: 1. No significant carotid artery stenosis. 2. Mild atherosclerotic plaque in the intracranial carotid arteries. No stenos is. 3. No cerebral aneurysm. 4. Very subtle, subcentimeter pulmonary nodules in the lung apices. Recommend follow-up chest CT with IV contrast. Recommend at least 24 hour interval to lennox ar the IV contrast which has been injected today. Metastatic disease should be excluded. 5. Enlarged, multinodular thyroid gland.
[2023-02-10] MEDS: iohexol 350 mg/mL 500 mL Btl (per mL) IV (14:02)
[2023-02-10 15:12] LABS: Amphetamines Screen Urine Negative (Negative); Barbiturates Screen Urine Negative (Negative); Benzodiazepines Screen Urine Negative (Negative); Cocaine Screen Urine Negative (Negative); Opiate Screen Urine Negative (Negative); PCP Screen Urine Negative (Negative); THC Screen Urine Negative (Negative)
[2023-02-10 15:13] LABS: Add Urine Culture? No; Add Urine Microscopic? YES; Amorphous Sediment Urine 2+ /hpf; Bilirubin Urine Neg (Negative); Blood Urine Trace (Negative); Glucose Urine UA Norm (Normal); Ketones Urine Negative (Negative); Leukocyte Esterase Urine Negative (Negative); Nitrate Urine Negative (Negative); Protein Urine Neg (Negative); RBC Urine 0-4 /hpf (0-2); Specific Gravity, Urine 1.005 (1.005-1.030); Squamous Epithelial Cell Urine 0-4 /hpf (0-5); Urine Appearance Clear (CLEAR); Urine Color Yellow (Yellow); Urobilinogen Urine Norm (Negative); WBC Urine 0-4 /hpf (0-5); pH Urine 6.5 (5-7)
--- NOTE | 2023-02-12 11:13 | DCPLANNER ---
Addendum entered by Jackie Garland 02/26/23 10:35: All of these appointments have been cancelled Addendum entered by Jackie Garland 02/25/23 13:48: Patient has a follow up appointment scheduled for March at 1:[address] Traore at neurology. Addendum entered by Jackie Garland 02/18/23 09:09: Patient has an outpatient MRI scheduled for Saturday, March 04, 2023 at 1:00. Addendum entered by Jackie Garland 02/18/23 09:09: Patient has an outpatient echo scheduled for Saturday, February 25, 2023 at 3:15 Original Note: environmental health manager had message to schedule a follow up appointment for patient with neurology. environmental health manager sent patients information to the front office staff at neurology. Patients information will be printed and reviewed. Clinic will call patient with appointment information. environmental health manager had message to schedule an outpatient MRI and echo cardiogram for patient. environmental health manager faxed signed order to centralized scheduling, who will call patient with appointment information.
== END 2023-02-10 16:15 | disposition home or self-care (01) ==
PROVIDERS: Emergency Provider Emergency Medicine; PCP Electrodiagnostic Medicine
DX: I63.9 Cerebral infarction, unspecified (principal); Z85.3 Personal history of malignant neoplasm of breast; F17.210 Nicotine dependence, cigarettes, uncomplicated
CPT/HCPCS: 36416; 70450; 70496; 70498; 71045; 80053; 80306; 81001; 82962; 85025; 85610; 85730; 93005; 99285; J7040; Q9967

== ENCOUNTER 2023-02-23 13:46 | Oncology outpatient (recurring) (ONCR) | payer OTHER, SELFPAY ==
[2023-02-23 13:53] VITALS: BP 132/85; PULSE 85; RESP 18; TEMP 36.8; O2SAT 98
[2023-02-23 14:07] LABS: Basophils # 0.1 10^3/uL (0.0-0.1); Basophils % 0.7 %; Eosinophils # 0.1 10^3/uL (0.0-0.8); Hematocrit 42.8 % (37.0-47.0); Hemoglobin 14.4 g/dL (11.5-15.3); Lymphocytes % 28.4 %; Mean Corpuscular HGB Conc 33.6 g/dL (30.0-36.0); Mean Corpuscular Volume 104.1 fl (81-99); Monocytes # 0.4 10^3/uL (0.2-0.9); Neutrophils # 4.51 10^3/uL (1.8-7.7); Neutrophils % 64.6 %; Nucleated Red Blood Cells % 0 %; Platelet Count 268 10^3/cmm (130-400); Red Blood Count 4.11 10^6/uL (4.1-5.3); Red Cell Distribution Width 13.5 % (12.1-15.1)
[2023-02-23 14:35] LABS: Alanine Aminotransferase 22 U/L (0-33); Albumin Level 4.4 g/dL (3.5-5.2); Alkaline Phosphatase 121 U/L (35-105); Aspartate Amino Transferase 25 U/L (0-32); Blood Urea Nitrogen 12 mg/dL (8-23); Calcium 9.8 mg/dL (8.5-10.5); Carbon Dioxide 27 mmol/L (22-29); Chloride 100 mmol/L (98-107); Globulin 2.8 g/dL (1.3-4.6); Glomerular Filtration Rate 85.4 mL/min (90-130); Glucose 123 mg/dL (65-115); Osmolality Calculated 285 mOsm/kg (285-295); Sodium 137 mmol/L (136-145); Total Bilirubin 0.2 mg/dL (0.15-1.2); Total Protein 7.2 g/dL (6.6-8.7)
== END 2023-03-12 23:59 | disposition home or self-care (01) ==
PROVIDERS: Nurse Practitioner Family; PCP Electrodiagnostic Medicine; Visit Provider Radiology Radiation Oncology
DX: C50.811 Malignant neoplasm of overlapping sites of right female breast (principal); Z17.0 Estrogen receptor positive status [ER+]; Z53.9 Procedure and treatment not carried out, unspecified reason
CPT/HCPCS: 36415; 80053; 85025

== ENCOUNTER 2024-04-28 09:35 | Oncology outpatient (recurring) (ONCR) | payer OTHER, SELFPAY ==
[2024-04-28 10:04] LABS: Basophils % 0.6 %; Eosinophils # 0.1 10^3/uL (0.0-0.8); Eosinophils % 1.2 %; Hematocrit 40.4 % (36-47); Lymphocytes # 1.9 10^3/uL (0.8-4.8); Lymphocytes % 27.6 %; Mean Corpuscular HGB Conc 34.7 g/dL (30-55); Mean Corpuscular Hemoglobin 38.7 pg (27-33); Mean Corpuscular Volume 111.6 fl (85-98); Mean Platelet Volume 9.4 fL (7.4-10.4); Monocytes # 0.3 10^3/uL (0.2-0.9); Monocytes % 4.5 %; Neutrophils # 4.53 10^3/uL (1.8-7.7); Neutrophils % 65.8 %; Nucleated Red Blood Cells % 0 %; Platelet Count 291 10^3/cmm (157-399); Red Blood Count 3.62 10^6/uL (3.85-5.65); Red Cell Distribution Width 16.4 % (12.1-15.1); White Blood Count 6.88 10^3/uL (3.29-11.43)
[2024-04-28 10:26] LABS: Alanine Aminotransferase 33 U/L (0-33); Albumin Level 4.6 g/dL (3.5-5.2); Alkaline Phosphatase 117 U/L (35-105); Anion Gap 12.9 (5-19); Aspartate Amino Transferase 30 U/L (0-32); Blood Urea Nitrogen 7 mg/dL (8-23); CA 15-3 13.3 U/mL (0-25); Calcium 9.4 mg/dL (8.5-10.5); Carbon Dioxide 29 mmol/L (22-29); Chloride 100 mmol/L (98-107); Creatinine Clr Calc Pharmacy 67.4065; Globulin 2.9 g/dL (1.3-4.6); Glomerular Filtration Rate 72.9 mL/min (90-130); Glucose 100 mg/dL (65-115); Osmolality Calculated 282 mOsm/kg (285-295); Potassium 4.9 mmol/L (3.5-5.1); Sodium 137 mmol/L (136-145); Total Bilirubin 0.3 mg/dL (0.15-1.2); Total Protein 7.5 g/dL (6.6-8.7)
== END 2024-05-12 23:59 | disposition home or self-care (01) ==
PROVIDERS: PCP Electrodiagnostic Medicine; Visit Provider Internal Medicine Hematology & Oncology
DX: C50.911 Malignant neoplasm of unspecified site of right female breast (principal)
CPT/HCPCS: 36415; 80053; 85025; 86300